=== PATIENT | female | born 1985 | race Caucasian/White ===

== ENCOUNTER 2017-12-21 08:30 | Emergency (ER) | payer MEDICAID, SELFPAY ==
[2017-12-21 08:32] VITALS: BP 117/72; PULSE 77; RESP 17; TEMP 37.2; O2SAT 97; BMI 29.5
--- NOTE | 2017-12-21 08:42 | ED.VISSUMM ---
- ER Visit Summary Date of Service: 12/21/17 Chief Complaint: Vomiting and diarrhea History of Present Illness: The patient is a 32 F who goes to the [facility] and does not remember her physician's name. She reports that she has vomiting and diarrhea that began 3 days ago. She is vomited multiple times. No blood in her emesis. She had 7-8 episodes of diarrhea. No blood in her stools or black tarry stools. She reports she is an aching abdominal pain that is diffuse. Is 9 out of 10 with standing up and she is pain-free currently. She denies any dysuria or frequency. Her last menstrual period was in 2011 and she has had an endometrial ablation. No vaginal bleeding or discharge. Patient reports that her boyfriend has similar symptoms as well. Has not been camping out of the country. No possible bad food exposure. Does not drink well water. No recent antibiotic use. Physical Examination: Vitals: Stable. Afebrile. General: Well-nourished and well-developed. Head: Normocephalic atraumatic. Neck: Supple, no lymphadenopathy. No JVD. Nontender. Cardiovascular: Regular rate and rhythm. No murmurs. Respiratory: No respiratory distress. Clear to auscultation bilaterally. Abdominal: Soft, nontender, nondistended, normal bowel sounds. No guarding, rebound, or peritoneal signs. Back: Nontender. Extremities: Nontender, no edema. Skin: Normal color, no rash. Neurologic: Alert and oriented ?3. Cranial nerves II through XII are intact. Normal strength and sensation. Psych: Normal affect. Emergency Department Course and Treatment: Patient refused an IV. She was given Zofran p.o. She is resting comfortably. Treatment Plan: Patient will be discharged with Zofran. Instructed to follow-up with primary care physician 1-2 days if not improving. Return to the emergency department for any worsening symptoms. Disposition: To home in improved and stable condition. Impression: 1. Vomiting/diarrhea. This note was generated with [employer] dictation software. It may contain incorrect words, spelling, and punctuation that were not noted in review of the chart prior to signing ED Disposition - Plan for ED Patient: Chief Complaint: Nausea/Vomiting/Diarrhea Instructions: ED Vomiting Diarrhea Nonspecific Ad Prescriptions: Ondansetron [Zofran Odt] 4 mg PO Q8H PRN PRN #10 tablet PRN Reason: Nausea Referrals: Doctor,Your [STAFF PHYSICIAN] - 1-2 Days if not improving
--- NOTE | 2017-12-21 08:45 | ED.DCSUM_ITS ---
- ER Visit Summary Date of Service: 12/21/17 Chief Complaint: Vomiting and diarrhea History of Present Illness: The patient is a 32 F who goes to the [facility] and does not remember her physician's name. She reports that she has vomiting and diarrhea that began 3 days ago. She is vomited multiple times. No blood in her emesis. She had 7-8 episodes of diarrhea. No blood in her stools or black tarry stools. She reports she is an aching abdominal pain that is diffuse. Is 9 out of 10 with standing up and she is pain-free currently. She denies any dysuria or frequency. Her last menstrual period was in 2011 and she has had an endometrial ablation. No vaginal bleeding or discharge. Patient reports that her boyfriend has similar symptoms as well. Has not been camping out of the country. No possible bad food exposure. Does not drink well water. No recent antibiotic use. Physical Examination: Vitals: Stable. Afebrile. General: Well-nourished and well-developed. Head: Normocephalic atraumatic. Neck: Supple, no lymphadenopathy. No JVD. Nontender. Cardiovascular: Regular rate and rhythm. No murmurs. Respiratory: No respiratory distress. Clear to auscultation bilaterally. Abdominal: Soft, nontender, nondistended, normal bowel sounds. No guarding, rebound, or peritoneal signs. Back: Nontender. Extremities: Nontender, no edema. Skin: Normal color, no rash. Neurologic: Alert and oriented ?3. Cranial nerves II through XII are intact. Normal strength and sensation. Psych: Normal affect. Emergency Department Course and Treatment: Patient refused an IV. She was given Zofran p.o. She is resting comfortably. Treatment Plan: Patient will be discharged with Zofran. Instructed to follow- up with primary care physician 1-2 days if not improving. Return to the emergency department for any worsening symptoms. Disposition: To home in improved and stable condition. Impression: 1. Vomiting/diarrhea. This note was generated with [employer] dictation software. It may contain incorrect words, spelling, and punctuation that were not noted in review of the chart prior to signing ED Disposition - Plan for ED Patient: Chief Complaint: Nausea/Vomiting/Diarrhea Instructions: ED Vomiting Diarrhea Nonspecific Ad Prescriptions: Ondansetron [Zofran Odt] 4 mg PO Q8H PRN PRN #10 tablet PRN Reason: Nausea Referrals: Doctor,Your [STAFF PHYSICIAN] - 1-2 Days if not improving
[2017-12-21] MEDS: Ondansetron ODT 4 MG Tablet PO (09:03)
== END 2017-12-21 09:12 | disposition home or self-care (01) ==
LOC: ED 08:46
PROVIDERS: Emergency Provider Emergency Medicine; Family Provider Family Medicine; PCP Family Medicine
DX: R19.7 Diarrhea, unspecified (principal); R11.2 Nausea with vomiting, unspecified; R10.9 Unspecified abdominal pain; R53.1 Weakness; E03.9 Hypothyroidism, unspecified; F17.210 Nicotine dependence, cigarettes, uncomplicated
CPT/HCPCS: 99283

== ENCOUNTER 2018-10-18 16:11 | Observation (INO) | payer MEDICAID, SELFPAY ==
[2018-10-18] VITALS (9 sets, daily range): BP systolic 122–132; BP diastolic 66–86; PULSE 65–87; RESP 11–18; TEMP 37–37.1; O2SAT 96–100; BMI 37.5; BMI 35.2
--- NOTE | 2018-10-18 16:27 | CT_ITS ---
STUDY: CT BRAIN WITHOUT CONTRAST REASON FOR EXAM: Female, 32 years old. Weakness into legs RADIATION DOSAGE (If Supplied By Facility): CTDIvol = ( 44.99 ) mGy, DLP = ( 762.36 ) mGycm TECHNIQUE: Transaxial CT imaging of the brain was performed without administration of intravenous contrast material. Individualized dose optimization techniques were used for this CT. COMPARISON: No relevant priors. FINDINGS: Normal soft tissue structures. Normal calvarium. Normal size ventricles and extra-axial spaces for the patient's age. Normal white matter tracts of the cerebral hemispheres. Normal basal ganglia and thalami. Normal brainstem. Normal cerebellum. There is no intracranial hemorrhage. There are no findings of an acute ischemic infarction. Normal visualized paranasal sinuses. CT/Brain/Head without Contrast IMPRESSION: Normal unenhanced CT scan of the brain. Electronically Signed: Ajit Castanon, at 17:22 EDT Tel , Service support ,
--- NOTE | 2018-10-18 16:27 | EKG12_ITS ---
Test Reason : NUMBNESS Blood Pressure : / mmHG Vent. Rate : 075 BPM Atrial Rate : 075 BPM P-R Int : 160 ms QRS Dur : 088 ms QT Int : 390 ms P-R-T Axes : 016 003 005 degrees QTc Int : 435 ms Normal sinus rhythm Septal infarct , age undetermined , cannot be excluded Abnormal ECG Confirmed by BOYD MCQUEEN, DONOVAN ([id number]), publication editor MUSTAPHA BECERRA ([id number]) on 10/20/2018 12:10:53 PM Referred By: CYNTHIA Confirmed By:DONOVAN NIX MD
[2018-10-18 16:36] LABS: Bedside Glucose 110 mg/dL (70-110)
--- NOTE | 2018-10-18 16:37 | ED.DCSUM_ITS ---
History of Present Illness Chief Complaint: Numb/Ting Narrative: Patient presenting for evaluation secondary to right-sided symptoms and some word finding difficulty. Patient reports over the course of the week she has been having some abnormal feelings of tingling in her feet bilaterally and some generalized weakness. Patient states that today however at about 240 she had a onset of an abnormal feeling where she was feeling alternatingly hot and cold on her right side, and then was developing word finding difficulty. Patient denies that she was having any diplopia, but did feel as if she had some blurred vision in the right eye. She denies any objective weakness associated with this. She denies that there is any sort of numbness associated with this. She is never had any prior similar episodes in the past. Patient is on thyroid supplementation which was recently changed within the last 3 weeks. She is a non-smoker. She denies any underlying history of diabetes hypertension hyperlipidemia. Patient does state that she has had a significant amount of increased stress over the course of the last year or so with weight gain as she is a single mother of 4 children. She denies any underlying history of psychiatric disease. Review of systems otherwise negative. Past Medical History - Allergies and Home Meds Allergies/Adverse Reactions: Allergies thyroid, pork Allergy (Verified 10/18/18 16:14) Unknown Smoking Status: Current every day smoker - Family History Maternal Family History: Reports: No pertinent history Paternal Family History: Reports: Cancer - leukemia Review of Systems All systems negative except as indicated General: Reports: Chills, Sweats Eyes: Reports: Blurred vision - right Neurological: Reports: - - Word finding difficulty Physical Exam Vital Signs/Narrative: Vital Signs Temp Pulse Resp BP Pulse Ox 10/18/18 16:14 98.7 F 80 11 L 124/86 H 96 General: Well nourished, Well developed, No Acute Distress Head: Normocephalic, Atraumatic Eyes: Perrl, EOMI ENT: Moist mucous membranes, No rhinorrhea Neck: Supple, Nontender Cardiovascular: Regular rate, Regular rhythm, Murmur - 4 out of 6 systolic murmur is noted Respiratory: No distress, CTA bilaterally, Chest nontender Abdomen: Soft, Nontender, Nondistended, Normal bowel sounds Back: Nontender, Normal Inspection Extremities: Nontender, No edema Skin: Normal color, No rash Neurological: Alert, Oriented x3, Cranial nerves II-XII grossly intact, Normal Strength, Normal Sensation, - - NIH stroke scale is 0, normal cerebellar testing Psychological: Normal affect, Normal Mood Diagnostic/Tx/Re-eval - Medical Decision Making Patient presented secondary to right-sided symptoms and some word finding difficulty. Stroke work-up was obtained especially given the fact that the patient has a finding of a new onset heart murmur. Work-up was found to be negative including CT brain lab work EKG. Patient had resolution of her symptoms, and did not have any reemergence of the symptoms. Given the patient's cardiac murmur and unilateral symptoms I do believe she requires admission. Patient was discussed with the hospitalist. ED Disposition - Plan for ED Patient: Disposition: Acute Care Hospital [facility] Diagnosis: Cardiac murmur, Paresthesia
[2018-10-18 16:43] LABS: Absolute Lymphocyte Count 1.63 X10^3/ul (0.83-4.51); Absolute Neutrophil Count 4.4 X10^3/uL (2.0-7.7); Basophil# 0.01 X10^3/uL; Basophil% 0.2 % (0-1); Eosinophil# 0.11 X10^3/uL; Eosinophils% 1.7 % (0-5); Hematocrit 38.9 % (37-47); Hemoglobin 13.2 g/dl (12.0-15.0); Lymphocyte # 1.63 X10^3/ul (4.0); Lymphocyte % 24.6 % (19-41); Mean Corp Hgb Conc 33.9 g/gl (32-36); Mean Corpuscular Hgb 30.8 pg (27.0-32.0); Mean Corpuscular Volume 90.7 fL (81-99); Mean Platelet Vol. 9.1 fl (6.2-12.0); Monocyte# 0.42 X10^3/uL; Monocyte% 6.3 % (0-10); Neutrophil # 4.43 X10^3/uL (2.7-7.7); Neutrophil % 66.9 % (47-70); Platelet Count 222 K/mm3 (150-450); RBC Distribution Width CV 12.7 % (11.6-14.6); RBC Distribution Width SD 41.5 fl (35.1-43.9); Red Blood Count 4.29 M/mm3 (4.2-5.4); White Blood Count 6.6 K/mm3 (4.4-11.0)
[2018-10-18 16:44] LABS: POSITIVE COUNT NO; POSITIVE DIFFERENTIAL NO; POSITIVE MORPHOLOGY NO
[2018-10-18 16:52] LABS: Prothrombin Time (Protime)PT. 12.6 SECONDS (11.7-14.9)
--- NOTE | 2018-10-18 16:52 | RAD_ITS ---
STUDY: X-RAY CHEST REASON FOR EXAM: Female, 32 years old. Numbness in legs TECHNIQUE: AP chest COMPARISON: 11/28/2016 FINDINGS: The lungs are clear and expanded. There is no demonstrated pleural abnormality. Normal size heart. Normal mediastinum and aniya. Normal visualized pulmonary arteries. Normal visualized aortic arch and descending thoracic aorta. Normal visualized thoracic spine. Normal visualized ribs, clavicles, and shoulders. There is no demonstrated abnormality of the visualized soft tissue structures of the upper abdomen. RAD/Chest 1 View IMPRESSION: Normal x-ray examination of the chest. Electronically Signed: Ajit Castanon, at 17:24 EDT Tel , Service support ,
[2018-10-18 16:58] LABS: Anion Gap 8 (5-15); BUN 10 mg/dL (7-18); BUN/Creat Ratio 14.5 RATIO (10-20); Calcium,Total 8.7 mg/dL (8.5-10.1); Chloride 104 mmol/L (98-107); Creatinine, Serum 0.69 mg/dL (0.55-1.02); EST Glomerular Filtration Rate 105 mL/min (>60); Est Glom Filt Rate - Afr Amer 127 mL/min (>60); Estimated Creatinine Clearance 102.01 ml/min; Glucose 99 mg/dL (74-106); Potassium 3.3 mmol/L (3.5-5.1); Sodium Level 138 mmol/L (136-145)
--- NOTE | 2018-10-18 18:56 | PCM.HP.STD ---
Problem List (1) CVA (cerebral vascular accident) Status: Acute (2) Hypokalemia Status: Acute (3) Hypothyroidism Status: Chronic (4) Former smoker Status: Acute (5) Hypoglycemia Status: Chronic (6) Obesity Status: Chronic History of Present Illness Date of Admission: 10/18/18 Chief Complaint: right sided numbness and weakness The patient is a 32 year old F with pmhx of hypothyroidism, episodic hypoglycemia, obesity, prior smoker, who presents to the ER with c/o sudden onset of right sided numbness and weakness. This began today about 1440 while she was at work. She was standing when the symptoms began with no clear inciting factor. She said it started as a cold burn followed by numbness that spread from her RUE to her RLE. She later developed change in speech. She says she was talking to her boyfriend on the phone and nothing she said made sense and he could not understand her. She could tell she was not speaking correctly, saying that she knew what she wanted to say but it would not come out right. She is also having difficulty swallowing now. She has no HERNANDEZ. She has no vision or hearing changes. No falls. This went away spontaneously however later she drove to pick and shovel man her kids and it returned. Also of note she had her Synthroid dose reduced recently from 175 daily to 150 daily. She was found to have a murmur today as well that she was not aware of. She has been under significant stress lately. [] Past Medical History Past Medical History (Chronic Problems): Chronic Problems Hypothyroidism (Chronic) Hypoglycemia (Chronic) Obesity (Chronic) Allergies thyroid, pork Allergy (Verified 10/18/18 16:14) Unknown Home Medications: Ambulatory Orders Medication Instructions Recorded Levothyroxine [Synthroid] 150 mcg PO DAILY 09/08/16 Surgical History: no surgical history Psychiatric History: No pertinent psych hx EXTRUSION MANAGER History: No pertinent EXTRUSION MANAGER history Lives: With Family Smoking Status: Former smoker Tobacco Use: Cigarettes Alcohol: None Drugs: None - *Family History Maternal History Items: No pertinent history Paternal History Items: Cancer - leukemia Review of Systems Constitutional: Reports: Fatigue. Denies: Chills, Fever, Weight Change HEENT: Denies: Head Aches, Sinus Congestion, Sinus Drainage Cardiovascular: Denies: Chest Pain, Palpitations Respiratory: Denies: Cough, Shortness of breath at rest, Sputum production Gastrointestinal: Denies: Abdominal Pain, Nausea, Vomiting Genitourinary: Denies: Dysuria Musculoskeletal: Denies: Joint Pain, Joint Tenderness Skin: Denies: Rash, Wounds Neurological: Reports: Change in Speech, Difficulty swallowing, Focal weakness, Numbness, Tingling. Denies: Balance problems, Blurred vision, Double vision, Slurred speech, Confusion, Headaches, Incoordination, Tremor, Seizures Psychiatric: Reports: Anxiety. Denies: Depression, Homicidal Ideations, Suicidal Ideations Hematologic/ Lymphatic: Denies: Easy Bruising, Easy Bleeding VTE Information - Inpt Only VTE Present on Admission: No VTE Mechan Device Prophylaxis: SCD's VTE Pharm Prophylaxis ordered?: No Patient Problems: Active and Suspected Problems CVA (cerebral vascular accident) (Acute) Hypokalemia (Acute) Former smoker (Acute) - Physical Exam General: Alert, Oriented x3, Cooperative HEENT: Atraumatic, PERRLA, EOMI, Normocephalic Neck: Supple, No JVD, Negative Carotid Bruits Lungs: Clear to auscultation, Normal air movement Cardiovascular: Regular rate, Murmur - 3/6 systolic Abdomen: Bowel Sounds Present, Soft, Non Tender Extremities: No edema, Capillary Refill Less than 3 Seconds Skin: No rashes, No breakdown Musculoskeletal: No Tenderness to Palpation of Joints or Extremities Neurological: Cranial nerves II-XII grossly intact Psych/Mental Status: Appropriate, Anxious, Alert and oriented to time, place, person, mood and affect Vital Signs Temp Pulse Resp BP Pulse Ox 98.7 F 83 18 128/82 H 99 10/18/18 16:14 10/18/18 18:27 10/18/18 18:27 10/18/18 18:27 10/18/18 18:27 Oxygen Delivery Method Room Air Weight: 218 lb 7.649 oz Body Mass Index (BMI) 37.5 Finger Stick Blood Glucose 110 Laboratory Tests Past 24 Hrs 10/18/18 10/18/18 10/18/18 16:31 16:31 16:31 WBC 6.6 RBC 4.29 Hgb 13.2 Hct 38.9 MCV 90.7 MCH 30.8 MCHC 33.9 RDW 12.7 RDW Differential 41.5 Plt Count 222 MPV 9.1 Immature Gran % (Auto) 0.300 Neut % (Auto) 66.9 Lymph % (Auto) 24.6 [place] % (Auto) 6.3 Eos % (Auto) 1.7 Baso % (Auto) 0.2 Absolute Neuts (auto) 4.4 Absolute Lymphs (auto) 1.63 Total Counted Not Reportable PT 12.6 INR 1.0 APTT 26.0 Sodium 138 Potassium 3.3 L Chloride 104 Carbon Dioxide 26.0 Anion Gap 8 BUN 10 Creatinine 0.69 Estim Creat Clear Calc 102.01 Est GFR (MDRD) Af Amer 127 Est GFR (MDRD) Non-Af 105 BUN/Creatinine Ratio 14.5 Glucose 99 Calcium 8.7 Troponin I < 0.015 POC Glucose 10/18/18 16:28 POC Glucose 110 Assessment/Plan All Active Problems CVA (cerebral vascular accident) (Acute) Hypokalemia (Acute) Former smoker (Acute) 1. Right sided weakness, aphasia, numbness/tingling, sudden onset, rule out CVA - ct brain negative. labs with low K. Check MRI brain, MRA head and neck, Echo, PTOTST, Neuro c/s, check TSH/T4 , mag, B12 2. New murmur - echo as above 3. Hypothyroidism - check TSH/FT4 as above, recently dose changed. 4.Obesity - dietary eval. DVT ppx: lovenox This patient was seen by Akbar Chung PA-C under the supervision of Dr. Cheek.
--- NOTE | 2018-10-18 19:27 | ECHOD_ITS ---
Reason For Study: TIA/CVA Procedure This was a 2D Doppler, Color Flow transthoracic echocardiogram. Exam performed portable in patient room. Left Ventricle Normal LV size. Left ventricular systolic function is normal. The estimated ejection fraction is 55 %. No evidence for diastolic dysfunction. No regional wall motion abnormalities noted. Right Ventricle Normal RV size. Normal systolic function. Atria Normal left atrium. Normal right atrium. No doppler evidence for ASD. Bubble contrast study negative for right to left interatrial shunt. Mitral Valve There is no mitral annular calcification. Normal mitral valve. Trivial mitral valve insufficiency. Tricuspid Valve Normal tricuspid valve. Mild tricuspid valve insufficiency. Right ventricular systolic pressure estimated to be 22 mmHg. Aortic Valve Trisinus/trileaflet aortic valve. Mild focal aortic valve calcification. Mild (1+) aortic valve insufficiency. Pulmonic Valve The pulmonic valve is not well visualized. Trivial pulmonic valve insufficiency. Great Vessels Normal sized aortic root. Pericardium/Pleural No pericardial effusion. Medication Performed a rapid injection of agitated mix of 9 cc saline and 1cc air to assess for atrial septal defect. MMode/2D Measurements & Calculations LVIDd: 5.1 cm IVSd: 0.83 cm Ao root diam: 3.0 cm LVIDs: 3.3 cm LVPWd: 0.82 cm RVDd: 3.4 cm FS: 35.1 % LAV(MOD-bp): 47.0 ml LVAd ap4: 35.6 cm2 SV(MOD-sp4): 64.6 ml LAV(MOD-bp) Indexed: 23.8 ml/m2 EDV(MOD-sp4): 118.5 ml LAV(MOD-sp2): 50.9 ml EDV(sp4-el): 121.8 ml LAV(MOD-sp4): 43.8 ml LVAs ap4: 21.6 cm2 ESV(MOD-sp4): 53.9 ml ESV(sp4-el): 54.6 ml EF(MOD-sp4): 54.5 % EF(sp4-el): 55.2 % SV(sp4-el): 67.2 ml LA A4 area: 16.4 cm2 LA dimension(2D): 3.7 cm RA A4 area: 13.3 cm2 Time Measurements MV dec time: 0.26 sec Doppler Measurements & Calculations MV E max geoffrey: 90.3 cm/sec Lat Peak E' Geoffrey: 17.1 cm/sec Med Peak E' Geoffrey: 11.5 cm/sec MV A max geoffrey: 55.1 cm/sec E/E' lat: 5.3 E/E' med: 7.9 MV E/A: 1.6 Ao V2 max: 237.4 cm/sec AI max geoffrey: 444.9 cm/sec LV V1 max: 104.9 cm/sec Ao max P.6 mmHg AI max P.3 mmHg LV V1 max P.4 mmHg Ao V2 mean: 163.0 cm/sec AI dec slope: 208.8 cm/sec2 LV V1 mean P.3 mmHg Ao mean P.0 mmHg AI P1/2t: 624.1 msec LV V1 mean: 71.1 cm/sec Ao V2 VTI: 45.8 cm LV V1 VTI: 23.9 cm TR max geoffrey: 218.8 cm/sec TR max P.2 mmHg Interpretation Summary Left ventricular systolic function is normal. The estimated ejection fraction is 55 %. Trivial mitral valve insufficiency. Mild tricuspid valve insufficiency. Mild focal aortic valve calcification. Mild (1+) aortic valve insufficiency. Trivial pulmonic valve insufficiency. Right ventricular systolic pressure estimated to be 22 mmHg. No evidence for diastolic dysfunction. Bubble contrast study negative for right to left interatrial shunt. Ordering Physician: Renae Cheek Referring Physician: LAGO. AGUILAR Performed By: Carol Ross, YOGESH, RVT
[2018-10-18] MEDS: 0.9% Normal Saline 1,000 ML 100 ML IV (20:22)
[2018-10-18 20:25] LABS: Magnesium 1.8 mg/dL (1.6-2.6); T4 Free Direct 1.29 ng/dL (0.76-1.46); Thyroid Stim Hormone (TSH) 0.03 uIU/mL (0.358-3.74)
[2018-10-18] MEDS: Acetaminophen 325 MG Tablet 650 MG PO (20:33)
[2018-10-18 21:10] LABS: Bedside Glucose 89 mg/dL (70-110)
[2018-10-18 21:35] LABS: Vitamin B12 443 pg/mL (211-911)
[2018-10-19] VITALS (8 sets, daily range): BP systolic 101–116; BP diastolic 44–69; PULSE 60–74; RESP 16–17; TEMP 36.6–36.9; O2SAT 96–99; BMI 35.2
[2018-10-19] MEDS: Levothyroxine 150 MCG Tablet PO (05:46)
[2018-10-19] MEDS: 0.9% Normal Saline 1,000 ML 100 ML IV (05:47)
[2018-10-19 06:15] LABS: Cholesterol 149 mg/dL (200); High Density Lipoprotein 37 mg/dL; Triglycerides 81 mg/dL; Very Low Density Lipoprotein 16 mg/dL (5-40)
--- NOTE | 2018-10-19 07:27 | MRI_ITS ---
HISTORY: CVA, episode of RIGHT facial numbness, speech issues and difficulty swallowing EXAMINATION: MRA Head W/O Contrast TECHNIQUE: Routine k[place] of Vee/brain 3D time of flight MR angiogram protocol was performed without gadolinium. 3D reconstructions were reviewed. IV Contrast dosage and agent: None. COMPARISON: None FINDINGS: ICAs: No significant stenosis at the intracranial/visualized segments. ACAs: No significant stenosis at the visualized segments. ACOM is present. MCAs: No significant stenosis at the visualized segments. powder blender and pourer: No significant stenosis at the visualized segments. Prominent, patent, left posterior communicating artery. BASILAR ARTERY: No significant stenosis. VERTEBRAL ARTERIES: No significant stenosis at the intradural/visualized segments. No evidence of intracranial aneurysm or vascular malformation. MRI/MRA Head ONLY without Contrast IMPRESSION: Unremarkable MRA head. at 0948 Reported and signed by: Modesto Helms MD Electronically Signed: Modesto Helms, at 9:47 EDT Tel , Service support ,
--- NOTE | 2018-10-19 07:27 | MRI_ITS ---
HISTORY: CVA, episode of RIGHT facial numbness, speech issues and difficulty swallowing EXAMINATION: MR Brain W/O Contrast TECHNIQUE: Multiplanar and multisequence MR images of the brain were obtained without gadolinium. IV Contrast dosage and agent: None. COMPARISON: CT brain 10/18/18. FINDINGS: PARANASAL SINUSES AND MASTOID AIR CELLS: Clear. CALVARIUM: Unremarkable. INTRACRANIAL HEMORRHAGE: No evidence of intracranial hemorrhage. BRAIN PARENCHYMA: No acute infarct. Cerebrum, cerebellum and brainstem are unremarkable. Normal sella turcica, pituitary gland, infundibular stalk, optic chiasm and hypothalamus. The internal auditory canals are patent. No mass effect or midline shift. CSF SPACES: Appropriate for age. There is no hydrocephalus. Patent basal cisterns. VASCULAR SYSTEM: Normal flow voids in the major intracranial circulation. ORBITS: Both globes, extraocular muscles, optic nerves and retrobulbar fat appear unremarkable. MRI/Brain without Contrast IMPRESSION: Negative MRI Brain without contrast. at 1014 Reported and signed by: Modesto Helms MD Electronically Signed: Modesto Helms, at 10:13 EDT Tel , Service support ,
--- NOTE | 2018-10-19 07:28 | MRI_ITS ---
HISTORY: CVA, episode of RIGHT facial numbness, speech issues and difficulty swallowing EXAMINATION: MRA Neck W/O Contrast TECHNIQUE: Routine non-contrast [id number] Carotid MR angiogram protocol was performed without gadolinium. 3D reconstructions were reviewed. Nascet criteria using the distal ICAs for comparison were used for evaluation of stenoses. IV Contrast dosage and agent: None. COMPARISON: None FINDINGS: AORTIC ARCH AND BRANCHES: The aortic arch is not fully included on the study. There is aberrant right subclavian artery coursing posterior to the trachea and esophagus, not fully visible. The right, Benson arises directly from the aortic arch. RIGHT CCA: No occlusion, significant stenosis or dissection. RIGHT ICA: No occlusion, significant stenosis or dissection. LEFT CCA: No occlusion, significant stenosis or dissection. LEFT ICA: No occlusion, significant stenosis or dissection. RIGHT VERTEBRAL ARTERY: No occlusion, significant stenosis or dissection. Slightly hypoplastic. LEFT VERTEBRAL ARTERY: No occlusion, significant stenosis or dissection. Left dominant. No evidence of acute injury of the major arterial system of the neck. No evidence of occlusion at the visualized portions of the major arterial system of the head. MRI/MRA Neck without Contrast IMPRESSION: No acute findings. No significant arterial narrowing in the neck. 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 at 1017 Reported and signed by: Modesto Helms MD Electronically Signed: Modesto Helms, at 10:16 EDT Tel , Service support ,
[2018-10-19] MEDS: Aspirin 81 MG TAB.CHEW PO (08:24)
[2018-10-19 09:41] LABS: Amphetamine Urine VISTA NEGATIVE (<1000 ng/mL); Barbiturate Urine VISTA NEGATIVE (< 200 ng/mL); Benzodiazepine Urine VISTA NEGATIVE (< 200 ng/mL); Cocaine Urine VISTA NEGATIVE (< 300 ng/mL); Ecstacy Urine VISTA NEGATIVE (< 500 ng/mL); Methadone Urine VISTA NEGATIVE (< 300 ng/mL); PCP Urine VISTA NEGATIVE (< 25 ng/mL); THC Urine VISTA NEGATIVE (< 50 ng/mL); Vista UDS pH Range 5
--- NOTE | 2018-10-19 12:16 | CON.PCM_ITS ---
Reason for Consult Date of Consultation: 10/19/18 Reason for Consultation: right sided paresthesias History of Present Illness: The patient is a 32 year old F presents after onset at 230pm yesterday symptoms of arm cold, crampy numbness in hand going up arm, right eye blurry, called her boss, noted abnormal speech, called her boyfriend who she says noted speech abnormality and she called the squad, now normal. history of migraines, severe stress and insomnia. per admit note:ATTENDING PHYSICIAN NOTE: I have seen and examined the patient independently and agree with the assessment, plan, history per Akbar Chung as noted. Chief Complaint: R sided paresthesias, expressive aphasia. The patient is a 32 y/o F w/ PMHx: Hypothyroidism, Anxiety and untreated Depression, Obesity who presents to the [facility] ED on 10/18/18 w/ history of onset at approximately 2:40 PM on day of ED presentation right upper extremity paresthesias as well as expressive aphasia with dysphagia sensation which spontaneously went away within minutes. She denied any associated headache, light or sound sensitivity. Patient did state that she recently had reduction of her Synthroid regimen from 175 mcg to 150 mcg. She does admit to being under a lot of stress and very anxious, tearful during examination. Work-up in the ED included T 98.7, heart rate 80, BP 124/86, respiratory rate 17, 97% room air, remarkable CBC, unremarkable coags, BMP potassium 3.3 otherwise not remarkable, troponin less than 0.015, EKG with no acute evidence of ischemia, chest x-ray with no acute findings, CT head with no acute findings. 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 Lives: With Family Smoking Status: Former smoker Tobacco Use: Cigarettes Alcohol: None Drugs: None - *Family History Maternal History Items: No pertinent history Paternal History Items: Cancer - leukemia Review of Systems Constitutional: Denies: Chills, Fever, Weight Change Eyes: Denies: Blurred vision HEENT: Denies: Head Aches, Sinus Congestion, Sinus Drainage Cardiovascular: Denies: Chest Pain, Palpitations Respiratory: Denies: Cough, Shortness of breath at rest, Sputum production Gastrointestinal: Denies: Abdominal Pain, Nausea, Vomiting Genitourinary: Denies: Dysuria Musculoskeletal: Denies: Joint Pain, Joint Tenderness Skin: Denies: Rash, Wounds Neurological: Denies: Numbness, Tingling, Focal weakness Psychiatric: Denies: Anxiety, Depression, Homicidal Ideations, Suicidal Ideations Hematologic/ Lymphatic: Denies: Easy Bruising, Easy Bleeding Patient Problems: Active and Suspected Problems CVA (cerebral vascular accident) (Acute) Hypokalemia (Acute) Former smoker (Acute) Cardiac murmur (Acute) Paresthesia (Acute) - Physical Exam General: Alert, Oriented x3, Cooperative HEENT: Atraumatic, PERRLA, EOMI, Normocephalic Neck: Supple, No JVD, Negative Carotid Bruits Lungs: Clear to auscultation, Normal air movement Cardiovascular: Regular rate, No murmurs Abdomen: Bowel Sounds Present, Soft, Non Tender Extremities: No edema, Capillary Refill Less than 3 Seconds Skin: No rashes, No breakdown Musculoskeletal: No Tenderness to Palpation of Joints or Extremities Neurological: Cranial nerves II-XII grossly intact Psych/Mental Status: Normal Affect, Appropriate Vital Signs Temp Pulse Resp BP Pulse Ox 36.7 C 60 17 116/68 98 10/19/18 08:19 10/19/18 10:56 10/19/18 08:19 10/19/18 08:19 10/19/18 08:19 Oxygen Delivery Method Room Air Weight: 93.1 kg Body Mass Index (BMI) 35.2 Finger Stick Blood Glucose 110 Intake and Output for Last 24 Hours 10/17/18 10/18/18 10/19/18 23:59 23:59 23:59 Intake Total 1591 / 1591 Balance 1591 / 1591 Laboratory Tests Past 24 Hrs 10/18/18 10/18/18 10/18/18 13:41 16:31 16:31 WBC 6.6 RBC 4.29 Hgb 13.2 Hct 38.9 MCV 90.7 MCH 30.8 MCHC 33.9 RDW 12.7 RDW Differential 41.5 Plt Count 222 MPV 9.1 Immature Gran % (Auto) 0.300 Neut % (Auto) 66.9 Lymph % (Auto) 24.6 Schleicher % (Auto) 6.3 Eos % (Auto) 1.7 Baso % (Auto) 0.2 Absolute Neuts (auto) 4.4 Absolute Lymphs (auto) 1.63 Total Counted Not Reportable PT 12.6 INR 1.0 APTT 26.0 Sodium Potassium Chloride Carbon Dioxide Anion Gap BUN Creatinine Estim Creat Clear Calc Est GFR (MDRD) Af Amer Est GFR (MDRD) Non-Af BUN/Creatinine Ratio Glucose Calcium Magnesium Troponin I Triglycerides Cholesterol LDL Cholesterol VLDL Cholesterol HDL Cholesterol Vitamin B12 443 TSH Free T4 Urine Opiates Screen Urine Methadone Screen Ur Barbiturates Screen Ur Phencyclidine Scrn Ur Amphetamines Screen U Methamphetamin-MDMA U Benzodiazepines Scrn Urine Cocaine Screen U Cannabinoids Screen Ur Drug Screen Comment 10/18/18 10/18/18 10/19/18 16:31 16:31 05:18 WBC RBC Hgb Hct MCV MCH MCHC RDW RDW Differential Plt Count MPV Immature Gran % (Auto) Neut % (Auto) Lymph % (Auto) Schleicher % (Auto) Eos % (Auto) Baso % (Auto) Absolute Neuts (auto) Absolute Lymphs (auto) Total Counted PT INR APTT Sodium 138 Potassium 3.3 L Chloride 104 Carbon Dioxide 26.0 Anion Gap 8 BUN 10 Creatinine 0.69 Estim Creat Clear Calc 102.01 Est GFR (MDRD) Af Amer 127 Est GFR (MDRD) Non-Af 105 BUN/Creatinine Ratio 14.5 Glucose 99 Calcium 8.7 Magnesium 1.8 Troponin I < 0.015 Triglycerides 81 Cholesterol 149 LDL Cholesterol 96 VLDL Cholesterol 16 HDL Cholesterol 37 L Vitamin B12 TSH 0.03 L Free T4 1.29 Urine Opiates Screen Urine Methadone Screen Ur Barbiturates Screen Ur Phencyclidine Scrn Ur Amphetamines Screen U Methamphetamin-MDMA U Benzodiazepines Scrn Urine Cocaine Screen U Cannabinoids Screen Ur Drug Screen Comment 10/19/18 08:50 WBC RBC Hgb Hct MCV MCH MCHC RDW RDW Differential Plt Count MPV Immature Gran % (Auto) Neut % (Auto) Lymph % (Auto) Schleicher % (Auto) Eos % (Auto) Baso % (Auto) Absolute Neuts (auto) Absolute Lymphs (auto) Total Counted PT INR APTT Sodium Potassium Chloride Carbon Dioxide Anion Gap BUN Creatinine Estim Creat Clear Calc Est GFR (MDRD) Af Amer Est GFR (MDRD) Non-Af BUN/Creatinine Ratio Glucose Calcium Magnesium Troponin I Triglycerides Cholesterol LDL Cholesterol VLDL Cholesterol HDL Cholesterol Vitamin B12 TSH Free T4 Urine Opiates Screen NEGATIVE Urine Methadone Screen NEGATIVE Ur Barbiturates Screen NEGATIVE Ur Phencyclidine Scrn NEGATIVE Ur Amphetamines Screen NEGATIVE U Methamphetamin-MDMA NEGATIVE U Benzodiazepines Scrn NEGATIVE Urine Cocaine Screen NEGATIVE U Cannabinoids Screen NEGATIVE Ur Drug Screen Comment POC Glucose 10/18/18 10/18/18 20:37 16:28 POC Glucose 89 110 mri and mra reviewed, normal Current Home Med List Medication Instructions Recorded Confirmed Type Levothyroxine [Synthroid] 150 mcg PO DAILY 09/08/16 10/18/18 History Lorazepam [Ativan] 0.5 mg PO BID PRN PRN 10/18/18 10/18/18 History Current Medications Generic Name Dose Route Start Last Admin Trade Name Freq PRN Reason Stop Dose Admin Acetaminophen 650 mg 10/18/18 19:27 10/18/18 20:33 Tylenol PO 650 mg Q6H PRN PRN Administration Non-cardiac pain (mod-severe) Al Hydroxide/Mg Hydroxide 15 - 30 ml 10/18/18 19:27 Mylanta Ii PO Q4H PRN PRN INDIGESTION Albuterol Sulfate 2.5 mg 10/18/18 19:27 Ventolin Aerosols INHALATION Q2H PRN PRN dyspnea, wheezing Aspirin 81 mg 10/19/18 08:00 10/19/18 08:24 Aspirin, Baby PO 81 mg DAILY@0800 [facility] Administration Atorvastatin Calcium 80 mg 10/18/18 22:00 10/19/18 10:42 Lipitor PO Not Given QHS [facility] Dextrose 0 gm 10/18/18 19:27 D50w Syringe IV X1 PRN Hypoglycemia Protocol Enoxaparin Sodium 40 mg 10/19/18 06:00 10/19/18 05:47 Lovenox SC Not Given DAILY@0600 [facility] Glucagon 1 mg 10/18/18 19:27 IM .X1 PRN Hypoglycemia Hydralazine HCl 10 mg 10/18/18 19:27 Apresoline Iv IV Q4H PRN PRN SBP > 160 Levothyroxine Sodium 150 mcg 10/19/18 06:00 10/19/18 05:46 Synthroid PO 150 mcg DAILY@0600 [facility] Administration Lorazepam 0.5 mg 10/18/18 19:32 Ativan PO BID PRN PRN ANXIETY Melatonin 3 mg 10/18/18 19:27 Melatonin PO QHS PRN PRN INSOMNIA Ondansetron HCl 4 mg 10/18/18 19:27 Zofran IV Q8H PRN PRN NAUSEA/VOMITING Assessment/Plan All Active Problems CVA (cerebral vascular accident) (Acute) Hypokalemia (Acute) Former smoker (Acute) Cardiac murmur (Acute) Paresthesia (Acute) complex migraine, resolved, complicated by anxiety, stress and insomnia elavil 25mg qhs ok to dc op f/u
--- NOTE | 2018-10-19 13:50 | CHAPLAIN ---
Type of Pastoral Visit _x__ Initial Visit ___ Follow-up Visit ___ On-call Visit ___ General Patient Visit ___ Spiritual Assessment ___ Family Conference ___ Bereavement ___ Rapid Response ___ Code Blue ___ Other (describe below) Pastoral Care Referral From _x__ Patient ___ Family ___ Nurse ___ Physician ___ Slime Plant Operator ___ Special Assemblies Supervisor ___ Other (describe below) Sacrament/Intervention _x__ Active listening ___ Anointing ___ Episcopal ___ Bereavement ___ Communion ___ Mónica exploration ___ ___ Life review ___ Prayer ___ Reconciliation ___ Sacrament of Sick ___ Supportive presence ___ Wedding _x__ Other (describe below) Pastoral Comments talked with dry cell battery assembler about this patient who said she needs to leave right now; returned to pt to let her know that dry cell battery assembler will be in to see her soon and explain situation about discharge
[2018-10-19 14:56] LABS: Free T3 2.3 pg/mL (2.18-3.98)
--- NOTE | 2018-10-19 14:59 | NURSING ---
Pt requesting to sign herself out. Dr Maki notified and not discharging pt at this time and if pt would like to leave, it will be AMA. AMA paperwork signed with this RN at bedside. pt ambulated to the elevator independently. Anastasia ALVAREZ
--- NOTE | 2018-10-19 15:18 | PCM.DC.SUM ---
Discharge Date and Diagnosis Date of Admission: 10/18/18 Date of Discharge: 10/19/18 - Primary Discharge Diagnosis Complex migraine Hx nicotine abuse Cardiac murmur Anxiety Insomnia - Secondary Discharge Diagnosis Chronic Problems Hypothyroidism (Chronic) Hypoglycemia (Chronic) Obesity (Chronic) Hospital Course and Treatment Imaging Results: CT/Brain/Head without Contrast IMPRESSION: Normal unenhanced CT scan of the brain. RAD/Chest 1 View IMPRESSION: Normal x-ray examination of the chest. Echo: Interpretation Summary Left ventricular systolic function is normal. The estimated ejection fraction is 55 %. Trivial mitral valve insufficiency. Mild tricuspid valve insufficiency. Mild focal aortic valve calcification. Mild (1+) aortic valve insufficiency. Trivial pulmonic valve insufficiency. Right ventricular systolic pressure estimated to be 22 mmHg. No evidence for diastolic dysfunction. Bubble contrast study negative for right to left interatrial shunt. MRI/MRA Neck without Contrast IMPRESSION: No acute findings. No significant arterial narrowing in the neck. 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 MRI/MRA Head ONLY without Contrast IMPRESSION: Unremarkable MRA head. MRI/Brain without Contrast IMPRESSION: Negative MRI Brain without contrast. Consults: Peace - neuro Operations: None Procedures: 2-D Echocardiogram Summary of Care Provided: Hospital Course: The patient is a 32 year old F with past medical history of nicotine abuse, obesity, hypothyroidism, anxiety, insomnia, who presented to the emergency room with complaints of right upper and lower extremity numbness and weakness, slurred speech, aphasia that occurred the day of presentation at approximately 240 in the afternoon. She still expressed some weakness of the right upper extremity in the emergency room. In the ER she had a CT of the brain which was negative. Labs appeared unremarkable. She is admitted for stroke work-up. She underwent an MRI of the brain, MRA of the head and neck with no acute findings. She had a new murmur discovered so an echocardiogram was obtained as well. This showed 1+ aortic valve insufficiency, no other acute findings. Neuro felt that this was likely a complex migraine that had resolved at the time he had seen her and advsied elavil at night. She also reported that her thyroid levels recently were adjusted, so we checked a TSH which was low, however T4 was normal so nothing was changed with her synthroid dose. The patient left AMA before we had a chance to evaluate her, stating that she needed to get home. She was discharged home AGAINST MEDICAL ADVICE, she will need to follow-up with her PCP in 1-2 weeks and follow-up with neurology as directed. No Rx's were given. This patient was seen by Akbar Chung PA-C under the supervision of Doctor Shanthi. [] - Physical Exam Vital Signs Temp Pulse Resp BP Pulse Ox 97.9 F 66 17 112/69 99 10/19/18 13:57 10/19/18 13:57 10/19/18 13:57 10/19/18 13:57 10/19/18 13:57 Oxygen Delivery Method Room Air Weight: 205 lb 4.006 oz Body Mass Index (BMI) 35.2 Finger Stick Blood Glucose 110 Intake and Output for Last 24 Hours 10/17/18 10/18/18 10/19/18 23:59 23:59 23:59 Intake Total 2441 / 2441 Balance 2441 / 2441 Laboratory Tests Past 24 Hrs 10/18/18 10/18/18 10/18/18 13:41 16:31 16:31 WBC 6.6 RBC 4.29 Hgb 13.2 Hct 38.9 MCV 90.7 MCH 30.8 MCHC 33.9 RDW 12.7 RDW Differential 41.5 Plt Count 222 MPV 9.1 Immature Gran % (Auto) 0.300 Neut % (Auto) 66.9 Lymph % (Auto) 24.6 [place] % (Auto) 6.3 Eos % (Auto) 1.7 Baso % (Auto) 0.2 Absolute Neuts (auto) 4.4 Absolute Lymphs (auto) 1.63 Total Counted Not Reportable PT 12.6 INR 1.0 APTT 26.0 Sodium Potassium Chloride Carbon Dioxide Anion Gap BUN Creatinine Estim Creat Clear Calc Est GFR (MDRD) Af Amer Est GFR (MDRD) Non-Af BUN/Creatinine Ratio Glucose Calcium Magnesium Troponin I Triglycerides Cholesterol LDL Cholesterol VLDL Cholesterol HDL Cholesterol Vitamin B12 443 TSH Free T4 Free T3 pg/dL Urine Opiates Screen Urine Methadone Screen Ur Barbiturates Screen Ur Phencyclidine Scrn Ur Amphetamines Screen U Methamphetamin-MDMA U Benzodiazepines Scrn Urine Cocaine Screen U Cannabinoids Screen Ur Drug Screen Comment 10/18/18 10/18/18 10/19/18 16:31 16:31 05:18 WBC RBC Hgb Hct MCV MCH MCHC RDW RDW Differential Plt Count MPV Immature Gran % (Auto) Neut % (Auto) Lymph % (Auto) [place] % (Auto) Eos % (Auto) Baso % (Auto) Absolute Neuts (auto) Absolute Lymphs (auto) Total Counted PT INR APTT Sodium 138 Potassium 3.3 L Chloride 104 Carbon Dioxide 26.0 Anion Gap 8 BUN 10 Creatinine 0.69 Estim Creat Clear Calc 102.01 Est GFR (MDRD) Af Amer 127 Est GFR (MDRD) Non-Af 105 BUN/Creatinine Ratio 14.5 Glucose 99 Calcium 8.7 Magnesium 1.8 Troponin I < 0.015 Triglycerides 81 Cholesterol 149 LDL Cholesterol 96 VLDL Cholesterol 16 HDL Cholesterol 37 L Vitamin B12 TSH 0.03 L Free T4 1.29 Free T3 pg/dL Urine Opiates Screen Urine Methadone Screen Ur Barbiturates Screen Ur Phencyclidine Scrn Ur Amphetamines Screen U Methamphetamin-MDMA U Benzodiazepines Scrn Urine Cocaine Screen U Cannabinoids Screen Ur Drug Screen Comment 10/19/18 10/19/18 05:18 08:50 WBC RBC Hgb Hct MCV MCH MCHC RDW RDW Differential Plt Count MPV Immature Gran % (Auto) Neut % (Auto) Lymph % (Auto) [place] % (Auto) Eos % (Auto) Baso % (Auto) Absolute Neuts (auto) Absolute Lymphs (auto) Total Counted PT INR APTT Sodium Potassium Chloride Carbon Dioxide Anion Gap BUN Creatinine Estim Creat Clear Calc Est GFR (MDRD) Af Amer Est GFR (MDRD) Non-Af BUN/Creatinine Ratio Glucose Calcium Magnesium Troponin I Triglycerides Cholesterol LDL Cholesterol VLDL Cholesterol HDL Cholesterol Vitamin B12 TSH Free T4 Free T3 pg/dL 2.3 Urine Opiates Screen NEGATIVE Urine Methadone Screen NEGATIVE Ur Barbiturates Screen NEGATIVE Ur Phencyclidine Scrn NEGATIVE Ur Amphetamines Screen NEGATIVE U Methamphetamin-MDMA NEGATIVE U Benzodiazepines Scrn NEGATIVE Urine Cocaine Screen NEGATIVE U Cannabinoids Screen NEGATIVE Ur Drug Screen Comment POC Glucose 10/18/18 10/18/18 20:37 16:28 POC Glucose 89 110 Discharge Diet: No Restrictions Discharge Activity: Return to Normal Activity Home Medications: Medications to take at Discharge Levothyroxine [Synthroid] 150 mcg PO DAILY 09/08/16 Lorazepam [Ativan] 0.5 mg PO BID PRN PRN 10/18/18 Primary Care Physician: Azael Luz MD [Primary Care Provider] - Please follow up with your Primary Care Physician in: 1-2 weeks Please Follow Up With: Tyree Peace MD When: as directed Medical Necessity - Tobacco Use Smoking Status: Former smoker Tobacco Use: Cigarettes Meaningful Use Info Meaningful Use Diagnoses (Choose all that apply): None applicable
== END 2018-10-19 14:58 | disposition left against medical advice (07) ==
LOC: ED 17:04 → PCU 18:47
PROVIDERS: Internal Medicine; Admitting Provider Family Medicine; Emergency Provider Emergency Medicine; Family Provider Family Medicine; PCP Family Medicine; Visit Provider Family Medicine
DX: G43.109 Migraine with aura, not intractable, without status migrainosus (principal); R29.700 NIHSS score 0; E03.9 Hypothyroidism, unspecified; F41.9 Anxiety disorder, unspecified; F32.9 Major depressive disorder, single episode, unspecified; E66.9 Obesity, unspecified; Z71.3 Dietary counseling and surveillance; Z79.899 Other long term (current) drug therapy; E87.6 Hypokalemia; Z87.891 Personal history of nicotine dependence; R01.1 Cardiac murmur, unspecified; Z68.37 Body mass index [BMI] 37.0-37.9, adult; I08.3 Combined rheumatic disorders of mitral, aortic and tricuspid valves
CPT/HCPCS: 36415; 70450; 70544; 70547; 70551; 71045; 80048; 80061; 80307; 82607; 82962; 83735; 84439; 84443; 84481; 84484; 85025; 85610; 85730; 92523; 92610; 93005; 93306; 96360; 96361; 97802; 99218; 99285; J7030; Q9957; A4216; G0378

== ENCOUNTER → 2021-12-26 | Outpatient (CLI) | payer MEDICAID, SELFPAY ==
--- NOTE | 2021-12-26 17:42 | CT_ITS ---
STUDY: CT ABDOMEN AND PELVIS WITH CONTRAST REASON FOR EXAM: Female, 36 years old. Upper and lower abd pain, chronic diarrhea -- IV and oral RADIATION DOSAGE (If Supplied By Facility): CTDIvol = ( 18.44 ) mGy, DLP = ( 1197.32 ) mGycm TECHNIQUE: Transaxial images were obtained from the dome of the diaphragm to the symphysis pubis without oral contrast. Oral and amp; IV Read i-CAT and amp; 100mL Isovue-370 was administered. Sagittal and coronal images were reconstructed. Individualized dose optimization techniques were used for this CT. COMPARISON: None. FINDINGS: The visualized lung bases are unremarkable. The visualized portions of the heart are within normal limits. Normal liver. The gallbladder is contracted. Normal spleen. Normal pancreas. Normal bilateral adrenal glands. There is a small cyst right kidney too small to characterize measuring 4.5 mm. Normal left kidney. The stomach is partially filled with oral contrast. Normal small intestine. There is mild to moderate stool within the colon. There is no visualized significant wall edema or adjacent inflammatory change. The appendix is visualized and appears normal. Normal abdominal aorta. Normal inferior vena cava. Normal retroperitoneum. Normal urinary bladder . Normal visualized uterus. There are bilateral tubal ligation clips. There is a 1.6 cm right ovarian follicle. There is no significant free fluid Normal abdominal wall. In the mid thoracic spine there are multilevel Schmorl''s nodes with minor endplate changes. There is degenerative change of the SI joints. CT/Abdomen/Pelvis WITH Contrast IMPRESSION: Nonspecific nonobstructed bowel gas pattern. No appendicitis. No visualized hydronephrosis. Contracted gallbladder. Minor degenerative changes within the thoracolumbar spine . Small right ovarian follicle. Status post tubal ligation. Electronically Signed: Shayy Borges MD at 6:30 EDT ,
== END | disposition home or self-care (01) ==
LOC: CT 17:40
PROVIDERS: PCP Physician Assistant; Visit Provider Nurse Practitioner Adult Health
DX: R19.7 Diarrhea, unspecified (principal); R10.9 Unspecified abdominal pain; R14.0 Abdominal distension (gaseous); K90.0 Celiac disease
CPT/HCPCS: 74177; Q9967

== ENCOUNTER → 2022-01-29 | Outpatient (CLI) | payer MEDICAID, SELFPAY ==
[2022-01-29 18:30] LABS: Thyroid Stim Hormone (TSH) 0.11 uIU/mL (0.358-3.74)
[2022-02-07 11:52] LABS: H. PYLORI STOOL AG Negative (Negative)
[2022-02-07 15:39] LABS: Pancreatic Elastase, Fecal 123 (>200)
[2022-02-12 10:33] LABS: Calprotectin, Stool 149 ug/g (0-120)
== END | disposition home or self-care (01) ==
LOC: LAB 17:43
PROVIDERS: Nurse Practitioner Adult Health; PCP Physician Assistant; Visit Provider Internal Medicine Gastroenterology
DX: K58.0 Irritable bowel syndrome with diarrhea (principal); R14.0 Abdominal distension (gaseous); R10.9 Unspecified abdominal pain; R19.7 Diarrhea, unspecified
CPT/HCPCS: 36415; 82653; 83630; 83993; 84443; 87177; 87209; 87338; 87493; 87506

== ENCOUNTER → 2022-02-19 | Outpatient (CLI) | payer MEDICAID, SELFPAY | END | disposition home or self-care (01) | PROVIDERS: Internal Medicine Gastroenterology; PCP Physician Assistant; Visit Provider Nurse Practitioner Adult Health | DX: R19.7 Diarrhea, unspecified (principal) | CPT/HCPCS: 36415 ==

== ENCOUNTER → 2022-08-27 | Outpatient (CLI) | payer MEDICAID, SELFPAY ==
[2022-08-27 09:44] LABS: Erythrocyte Sedimentation Rate 10 mm/hr (0-30)
[2022-08-27 09:58] LABS: AST(SGOT) 15 U/L (15-37); Alanine Aminotransfer ALT/SGPT 26 U/L (13-56); Albumin, Serum 3.6 g/dL (3.2-5.0); Alkaline Phosphatase 59 U/L (45-117); Anion Gap 2 (5-15); BUN 11 mg/dL (7-18); BUN/Creat Ratio 14.6 RATIO (10-20); CRP < 2.90 mg/L (0.0-3.0); Calcium,Total 9.2 mg/dL (8.5-10.1); Chloride 106 mmol/L (98-107); Creatinine, Serum 0.75 mg/dL (0.55-1.02); EST Glomerular Filtration Rate 93 mL/min (>60); Est Glom Filt Rate - Afr Amer 112 mL/min (>60); Globulin 3.5 g/dL (2.2-4.2); Glucose 81 mg/dL (74-106); LDH 194 U/L (84-246); Potassium 4.2 mmol/L (3.5-5.1); Protein, Total 7.1 g/dL (6.4-8.2); Sodium Level 135 mmol/L (136-145)
[2022-08-27 10:31] LABS: Absolute Lymphocyte Count 1.18 X10^3/uL (0.83-4.51); Absolute Neutrophil Count 3.3 X10^3/uL (2.0-7.7); Basophil# 0.03 X10^3/uL; Basophil% 0.6 % (0-1); Eosinophil# 0.11 X10^3/uL; Eosinophils% 2.1 % (0-5); Hematocrit 41.1 % (37-47); Hemoglobin 13.9 g/dL (12.0-15.0); Lymphocyte # 1.18 X10^3/ul (0.83-4.51); Lymphocyte % 22.7 % (19-41); Mean Corp Hgb Conc 33.8 g/dL (32-36); Mean Corpuscular Hgb 30.8 pg (27.0-32.0); Mean Corpuscular Volume 91.1 fL (81-99); Mean Platelet Vol. 8.9 fl (6.2-12.0); Monocyte# 0.56 X10^3/uL; Monocyte% 10.8 % (0-10); NRBC Flagged by Analyzer 0 % (0-5); Neutrophil # 3.29 X10^3/uL (2.7-7.7); Neutrophil % 63.4 % (47-70); Platelet Count 287 K/mm3 (150-450); RBC Distribution Width SD 43.7 fl (35.1-43.9); Red Blood Count 4.51 M/mm3 (4.2-5.4); White Blood Count 5.2 K/mm3 (4.4-11.0)
[2022-08-28 14:09] LABS: Anti-Centromere B Ab <0.2 AI (0.0-0.9); Anti-Chromatin <0.2 AI (0.0-0.9); Anti-Jo <0.2 AI (0.0-0.9); Anti-Scleroderma-70 AB <0.2 AI (0.0-0.9); Anti-dsDNA Ab <1 IU/mL (0-9); RNP Ab 0.2 AI (0.0-0.9); SJOGREN'S Anti-SS-A test < 0.2 AI (0.0-0.9); SJOGREN'S Anti-SS-B test < 0.2 AI (0.0-0.9); Smith Ab <0.2 AI (0.0-0.9)
[2022-08-28 17:07] LABS: Endomysial Antibody IgA Negative (Negative); Immunoglobulin A 121 mg/dL (87-352); t-Transglutaminase IgA 3 U/mL (0-3)
[2022-08-31 18:07] LABS: Albumin 3.8 g/dL (2.9-4.4); Alpha-1-Globulins 0.2 g/dL (0.0-0.4); Alpha-2-Globulins 0.7 g/dL (0.4-1.0); Cytoplasmic Ab (C-ANCA) <1:20 titer (Neg:<1:20); Gamma Globulin 1.1 g/dL (0.4-1.8); Immunoglobulin A 132 mg/dL (87-352); Immunoglobulin E 13 IU/mL (6-495); Immunoglobulin G 1115 mg/dL (586-1602); Immunoglobulin M 65 mg/dL (26-217); PROEL- TOTAL PROTEIN 6.7 g/dL (6.0-8.5); Perinuclear Ab (P-ANCA) <1:20 titer (Neg:<1:20); QNTFERON TB Mitogen Value > 10.00 IU/mL (.); QNTFERON TB Nil Value 0.03 IU/mL (.); QNTFERON TB1+ Ag Value 0.04 IU/mL (.); QNTFERON TB2+ Ag Value 0.03 IU/mL (.); QNTIFERON TB Positive Criteria Negative (Negative)
== END | disposition home or self-care (01) ==
LOC: LAB 09:10
PROVIDERS: PCP Physician Assistant; Referring Provider Nurse Practitioner Adult Health; Visit Provider Nurse Practitioner Adult Health
DX: K90.0 Celiac disease (principal); R19.7 Diarrhea, unspecified; R14.0 Abdominal distension (gaseous); K52.832 Lymphocytic colitis
CPT/HCPCS: 36415; 80053; 82784; 82785; 83516; 83615; 84165; 85025; 85652; 86140; 86225; 86235; 86255; 86256; 86334; 86480

== ENCOUNTER → 2022-08-28 | Outpatient (CLI) | payer MEDICAID, SELFPAY ==
[2022-09-04 00:06] LABS: Calprotectin, Stool 126 ug/g (0-120)
== END | disposition home or self-care (01) ==
PROVIDERS: PCP Physician Assistant; Referring Provider Nurse Practitioner Adult Health; Visit Provider Nurse Practitioner Adult Health
DX: K90.0 Celiac disease (principal); R19.7 Diarrhea, unspecified
CPT/HCPCS: 83630; 83993

== ENCOUNTER 2022-09-03 05:14 | Day surgery (SDC) | payer MEDICAID, SELFPAY ==
[2022-09-03] VITALS (7 sets, daily range): BP systolic 112–130; BP diastolic 66–97; PULSE 56–77; RESP 16–18; TEMP 36.3–36.6; O2SAT 99–100; BMI 43.9
[2022-09-03] MEDS: Lactated Ringers 1,000 ML 15 ML IV (06:05)
--- NOTE | 2022-09-03 06:18 | SUR.PREOP ---
patient refused urine test. had an ablation in 2010 and no period for 12 years.
--- NOTE | 2022-09-03 06:30 | IMM_PTH ---
PATIENT: SOILA VICKERS LOC: EN U#:[id number] AGE/SX: 36/F ROOM: RE09/03/[address]: Dr. Kb Boudreaux DO : 1985 BED: DIS: 09/03/2022 SPEC #: [id number] RECD: 09/03/22 13:06 STATUS: GARRETT MIRI #: [id number] SEKOU: 09/03/22 06:[address]: Kb Boudreaux DEPT: IMMUNOHISTOCHEMISTRY RECD BY: Maty Quintana ENTERED: 09/03/22 13:06 SP TYPE: IMMUNO OTHR DR: ARON Gonzales Tissues: B - Stomach, NOS C - Esophagus, NOS Procedures: H Pylori (initial) P53 (initial) KI-67 (add) PHYSICIAN & INSTITUTION [place] [id number] SPECIMEN INFORMATION: Tissue Source: B ? Gastric body, C ? Distal esophagus Clinical Info: Celiac disease, diarrhea, LLQ abdominal pain, lymphocytic colitis Specimen Number: [id number] B & C CPT code: 85210 x2, 83169 METHODOLOGY: Deparaffinized sections of prefer/formalin-fixed tissue or PAP/DQ stained slides are incubated with monoclonal/polyclonal antibodies/oligonucleotide probes. Localization is made via biotin free immunoperoxidase method. Appropriate controls are performed and reacted as expected. Results on target cell population are indicated in the following table: RESULTS: ANTIBODY / CLONE RESULT Block B H Pylori (polyclonal) negative Block C P53 (DO-7) negative, null pattern Ki-67 (30-9) positive, low These tests were developed and their performance characteristics determined by [facility]. They may not have been cleared or approved by the U.S. Food and Drug Administration. The FDA has determined that such clearance or approval is not necessary. The above immunohistochemical/dualISH markers are ordered and reviewed by the Pathologist. INTERPRETATION: B. Gastric body, biopsy: Negative for Helicobacter pylori organisms. C. Distal esophagus, biopsy: No evidence of dysplasia. AM:jailene 09/05/2022
--- NOTE | 2022-09-03 06:30 | COLBX_PTH ---
PATIENT: SOILA VICKERS LOC: EN U#:[id number] AGE/SX: 36/F ROOM: RE09/03/[address]: Dr. Kb Boudreaux DO : 1985 BED: DIS: 09/03/2022 SPEC #: [id number] RECD: 09/03/22 10:51 STATUS: GARRETT MIRI #: [id number] SEKOU: 09/03/22 06:[address]: Kb Boudreaux DEPT: SURGICAL PATHOLOGY RECD BY: Shelby Jaeger ENTERED: 09/03/22 11:33 SP TYPE: COLON BX OTHR DR: ARON Gonzales Tissues: A - Duodenum, NOS B - COLON BIOPSY C - Esophagus, NOS D - Ileum, NOS E - COLON BIOPSY Procedures: Trichrome (control) Special Stain Group II Surgery Specimen Level IV Alcian Blue/PAS (control) HEADER OPERATION: Colonoscopy, E[place] [place] biopsy PRE-OP DIAGNOSIS: Celiac disease, diarrhea, LLQ abdominal pain, lymphocytic colitis TISSUE SUBMITTED: A ? Duodenum biopsy, B ? Gastric body biopsy, C ? Distal esophagus biopsy, D ? Terminal ileum biopsy, E ? Random colon biopsy MICROSCOPIC DIAGNOSIS A. Duodenum, biopsy: No pathologic change. B. Gastric body, biopsy: Chronic gastritis. See comment. C. Distal esophagus, biopsy: Gastroesophageal junctional mucosa with chronic inflammation. 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 No evidence of dysplasia. Focal changes of reflux. See comment. D. Terminal ileum, biopsy: No pathologic change. E. Colon, random biopsy: Lymphocytic colitis. See comment. AM:jailene 09/04/2022 COMMENT B. The results of immunohistochemistry for Helicobacter pylori will be reported separately ([id number]). C. Immunohistochemistry ([id number]) for P53 and Ki-67 will be performed and results will be reported separately. Alcian blue/PAS stain with matched control supports the above diagnosis. Trichrome stain with matched control was used in the evaluation of this case. MICROSCOPIC DESCRIPTION Slides are reviewed. GROSS DESCRIPTION A - Received in fixative is one container labeled with the patient's name and designated biopsy duodenum. The specimen consists of multiple irregular fragments of light chin soft tissue that in aggregate measure 1.0 x 0.5 x 0.1 cm. The specimen is totally submitted in one cassette. B - Received in fixative is one container labeled with the patient's name and designated biopsy gastric body. The specimen consists of two irregular fragments of light chin soft tissue that in aggregate measure 1.0 x 0.2 x 0.1 cm. The specimen is totally submitted in one cassette. C - Received in fixative is one container labeled with the patient's name and designated biopsy distal esophagus. The specimen consists of two irregular fragments of light chin soft tissue that in aggregate measure 0.6 x 0.3 x 0.1 cm. The specimen is totally submitted in one cassette. D - Received in fixative is one container labeled with the patient's name and designated biopsy terminal ileum. The specimen consists of multiple irregular fragments of light chin soft tissue that in aggregate measure 1.5 x 0.3 x 0.1 cm. The specimen is totally submitted in one cassette. E - Received in fixative is one container labeled with the patient's name and designated random colon biopsy. The specimen consists of multiple irregular fragments of light chin soft tissue that in aggregate measure 1.5 x 1.0 x 0.1 cm. The specimen is totally submitted in one cassette. / SJ:jailene 09/03/2022 TC:3 CPT: 83482 x5, 14803 x2
--- NOTE | 2022-09-03 06:33 | PCM.HP.BLA ---
History and Physical Date of Admission: 09/03/22 36 F who presents to the office today for chronic diarrhea in the setting of celiac disease and lymphocytic colitis. Bowels are out of control. [place] good for 3 mos but then back to having urgent diarrhea, having 25 bouts of diarrhea per day, watery. Has accidents. Food is going straight through her. She has diarrhea at least 2x in the night every night. Constant pain in LLQ, this began 2 wks ago. She is totally gluten-free. Colestipol was helpful but she ran out. Takes Zenpep--if she doesn't take PERT then she has extreme bloating and abdomen feels hard. Has 4 teenagers. Stressed about weight gain. Recent hives, etiology unknown. Lab pattern not suggestive of IBD Low fecal elastase High fecal calprotectin, high fecal lactoferrin Negative enteric pathogens, neg C diff, neg O&P She didn't tolerate budesonide for lymphocytic colitis Nunu established with this clinic 06.27.21 with referral from her PCP for evaluation of celiac disease and concomitant lymphocytic colitis previously diagnosed in 2018. Referred to rheumatology in for positive YUSEF, additional diagnosis of fibromyalgia and Zahra?s. Rheumatology unable to r/o YUSEF spectrum disorder, but did report celiac disease and zahra?s can cause positive YUSEF. EGD and colonoscopy performed [address] Brandin Judge. EGD ? visual inspection normal. Duodenal mucosa with subtotal villous blunting and patchy increase in epithelial lymphocytes consistent with celiac disease; gastric antrum found active gastritis; negative for H. Pylori. Colonoscopy ? lymphocytic colitis consistent with celiac disease vs rheumatoid arthritis. 12/26/21 CT/Abdomen/Pelvis WITH Contrast IMPRESSION: Nonspecific nonobstructed bowel gas pattern. No appendicitis. No visualized hydronephrosis. Contracted gallbladder. Minor degenerative changes within the thoracolumbar spine . Small right ovarian follicle. Status post tubal ligation. ROS Const Constitutional: Positive for fatigue, headache(s) and weight change ENT ENT: Positive for headache(s) and difficulty swallowing Cardio Cardiology: Positive for leg pain with exertion Gastro GI: Positive for bloating, change in bowel habits, constipation, diarrhea, difficulty swallowing, excessive flatus, nausea/dyspepsia and vomiting; No abdominal pain, belching, change in stool character, coffee ground emesis, cramping, heartburn, feeling full early, incontinent of stools, Vomiting blood/hematemesis, Blood in stool, loose stools, Black,tarry stools, pain with swallowing or other Musc Musculoskeletal: Positive for joint pain, back pain, muscle cramps, muscle weakness, stiffness and leg pain with exertion; No decreased muscle mass Skin Skin: No yellowing of the eye or itchy eyes Neuro Neurology: Positive for headache(s) and Increased tone in limbs Psych Psychiatric: Positive for anxiety and No depression Endo Endocrine: Positive for fatigue and weight change Aller/Imm Allergy/Immunologic: No itchy eyes Amado/Lymp Hematologic/Lymphatic: No easy bleeding or easy bruising Exam Const General: cooperative and in distress (tearful when discussion her symptoms) Eyes Sclera: sclerae normal Resp Effort & Inspection: normal respiratory effort GI Inspection: obesity Palpation: soft, no masses and tender in the LLQ Neuro Gait: normal gait Quality Reporting Tobacco Screening ([facility] 138) Smoking Status: Former smoker Assessment and Plan Assessment and Plan (1) Celiac disease: ?Status:?Chronic ?Plan: 36 yr old female with celiac disease (she is totally gluten-free), hx lymphocytic colitis, chronic diarrhea, acute LLQ abd pain. May have refractory lymphocytic colitis due to celiac disease, may need antiTNF. Get blood tests today and stool tests for inflammation. CT abd pel w/ oral and IV contrast for LLQ abd pain, diarrhea. Refill colestipol and lomotil. Will contact her with results and plan. Schedule EGD and colonoscopy, with office f/u 2 wks later. (2) Diarrhea: ?Status:?Chronic ?Plan: see above (3) LLQ abdominal pain: ?Status:?Acute ?Plan: see above (4) Lymphocytic colitis: ?Status:?Chronic ?Plan: see above ? ? ? Orders: Orders Colonoscopy Today K52.832 - Lymphocytic colitis, K90.0 - Celiac disease ? Comprehensive Metabolic Profil Today K90.0 - Celiac disease, R19.7 - Diarrhea, unspecified ? CRP Today K90.0 - Celiac disease, R19.7 - Diarrhea, unspecified ? LDH Today K90.0 - Celiac disease, R19.7 - Diarrhea, unspecified ? CBC W/Diff, Automated Today K90.0 - Celiac disease, R19.7 - Diarrhea, unspecified ? Erythrocyte Sed Rate Today K90.0 - Celiac disease, R19.7 - Diarrhea, unspecified ? YUSEF Comprehensive Panel Today K90.0 - Celiac disease, R19.7 - Diarrhea, unspecified ? Calprotectin, Stool Today K90.0 - Celiac disease, R19.7 - Diarrhea, unspecified ? Stool Lactoferrin/WBC Today K90.0 - Celiac disease, R19.7 - Diarrhea, unspecified ? ANCA Today K90.0 - Celiac disease, R19.7 - Diarrhea, unspecified ? Celiac Disease Profile Today K90.0 - Celiac disease, R19.7 - Diarrhea, unspecified ? Immunoglobulins G/A/M/E Today K90.0 - Celiac disease, R19.7 - Diarrhea, unspecified ? JUSTIN + Protein Elect, Serum Today K90.0 - Celiac disease, R19.7 - Diarrhea, unspecified ? Abdomen/Pelvis WITH Contrast Today K90.0 - Celiac disease, R10.32 - Left lower quadrant pain, R19.7 - Diarrhea, unspecified ? Quantiferon TB-Gold+ Today K52.832 - Lymphocytic colitis, K90.0 - Celiac disease, R19.7 - Diarrhea, unspecified ? EGD 09/03/22 K52.832 - Lymphocytic colitis, K90.0 - Celiac disease ? Medications: Refilled colestipol 1 g? PO BID 180 tabs 1RF diarrhea ? ? diphenoxylate-atropine 2.5-0.025 mg (Lomotil) 1 TAB? PO BID PRN 60 tabs 0RF diarrhea ? ? Discontinued plecanatide (Trulance) ?? Discontinued Reason:? Pt no longer taking 3 mg? PO DAILY 30 tabs 5RF ? ? lactulose ?? Discontinued Reason:? Order Changed (30 mL) 20 grams orally 1-2x per day 3,000 mL 0RF ? ? I have examined the patient and the H&P has been reviewed. There are no clinical changes since date of exam.
--- NOTE | 2022-09-03 07:12 | OP.EGD_ITS ---
Patient Name: Nunu Collazo Procedure Date: 09/03/2022 6:25 AM Date of : 1985 Age: 36 Procedure: Upper GI endoscopy Indications: Epigastric abdominal pain, Failure to respond to medical treatment Providers: Kb Boudreaux DO Referring MD: Kb Boudreaux DO Medicines: Monitored Anesthesia Care Patient Profile: This is a 36 year old female. Refer to note in patient chart for documentation of history and physical. Patient has symptoms of chronic abdominal cramping, chronic abdominal distention and chronic global abdominal pain. Complications: No immediate complications. Procedure: Pre-Anesthesia Assessment: - Prior to the procedure, a History and Physical was performed, and patient medications and allergies were reviewed. The patient is competent. The risks and benefits of the procedure and the sedation options and risks were discussed with the patient. All questions were answered and informed consent was obtained. Patient identification and proposed procedure were verified by the physician. Mental Status Examination: normal. Prophylactic Antibiotics: The patient does not require prophylactic antibiotics. Prior Anticoagulants: The patient has taken no previous anticoagulant or antiplatelet agents. After reviewing the risks and benefits, the patient was deemed in satisfactory condition to undergo the procedure. The anesthesia plan was to use monitored anesthesia care (MAC). Immediately prior to administration of medications, the patient was re-assessed for adequacy to receive sedatives. The heart rate, respiratory rate, oxygen saturations, blood pressure, adequacy of pulmonary ventilation, and response to care were monitored throughout the procedure. The physical status of the patient was re-assessed after the procedure. After obtaining informed consent, the endoscope was passed under direct vision. Throughout the procedure, the patient's blood pressure, pulse, and oxygen saturations were monitored continuously. The colonoscope was introduced through the mouth, and advanced to the second part of duodenum. The upper GI endoscopy was accomplished without difficulty. The patient tolerated the procedure well. Scope In: 6:41:16 AM Scope Out: 6:46:29 AM Total Procedure Duration Time 0 hours 5 minutes 13 seconds Findings: LA Grade A (one or more mucosal breaks less than 5 mm, not extending between tops of 2 mucosal folds) esophagitis with no bleeding was found 39 to 40 cm from the incisors. Biopsies were taken with a cold forceps for histology. Verification of patient identification for the specimen was done. Estimated blood loss was minimal. Patchy mildly erythematous mucosa without bleeding was found in the gastric body. Biopsies were taken with a cold forceps for histology. Verification of patient identification for the specimen was done. Estimated blood loss was minimal. Scalloped mucosa was found in the duodenal bulb. Biopsies were taken with a cold forceps for histology. Verification of patient identification for the specimen was done by the physician. Estimated blood loss was minimal. Impression: - LA Grade A reflux esophagitis. Biopsied. - Erythematous mucosa in the gastric body. Biopsied. - Duodenal mucosal changes seen, consistent with celiac disease. Biopsied. Recommendation: - Discharge patient to home. - Resume previous diet. - Continue present medications. - Await pathology results. Procedure Code(s): --- Professional --- 33425, Esophagogastroduodenoscopy, flexible, transoral; with biopsy, single or multiple CPT copyright 2017 [employer]. All rights reserved. The codes documented in this report are preliminary and upon regasification plant operator review may be revised to meet current compliance requirements. Kb Boudreaux DO 09/03/2022 7:11:01 AM This report has been signed electronically. Number of Addenda: 0 Note Initiated On: 09/03/2022 6:25 AM
--- NOTE | 2022-09-03 07:12 | OP.CCLET_ITS ---
09/03/2022 Sarah Patel Re : Upper GI endoscopy procedure for Nunu Collazo Dear Jorge This procedure was performed on Saturday, September 03, 2022. My impressions and recommendations are as follows: Impressions : - LA Grade A reflux esophagitis. Biopsied. - Erythematous mucosa in the gastric body. Biopsied. - Duodenal mucosal changes seen, consistent with celiac disease. Biopsied. Recommendations : - Discharge patient to home. - Resume previous diet. - Continue present medications. - Await pathology results. My findings are described in the full procedure note, which is enclosed. If I can be of further assistance, please feel free to contact me at . Sincerely, Kb Boudreaux, 09/03/2022 7:11:01 AM This report has been signed electronically.
--- NOTE | 2022-09-03 07:14 | OP.CCLET_ITS ---
09/03/2022 Sarah Patel Re : Colonoscopy procedure for Nunu Collazo Dear Jorge This procedure was performed on Saturday, September 03, 2022. My impressions and recommendations are as follows: Impressions : - Preparation of the colon was fair. - Decreased sphincter tone found on digital rectal exam. - Congested mucosa in the recto-sigmoid colon, in the sigmoid colon, in the descending colon and in the ascending colon. Biopsied. - The examined portion of the ileum was normal. Biopsied. Recommendations : - Discharge patient to home. - Resume previous diet. - Continue present medications. - Await pathology results. - Repeat colonoscopy in 5 years for surveillance. My findings are described in the full procedure note, which is enclosed. If I can be of further assistance, please feel free to contact me at . Sincerely, Kb Boudreaux, 09/03/2022 7:13:58 AM This report has been signed electronically.
--- NOTE | 2022-09-03 07:14 | OP.COLON_ITS ---
Patient Name: Nunu Collazo Procedure Date: 09/03/2022 6:46 AM Date of : 1985 Age: 36 Procedure: Colonoscopy Indications: Clinically significant diarrhea of unexplained origin Providers: Kb Boudreaux DO Referring MD: Kb Boudreaux DO Medicines: Monitored Anesthesia Care Patient Profile: This is a 36 year old female. Refer to note in patient chart for documentation of history and physical. Patient has symptoms of chronic abdominal cramping, chronic abdominal distention and chronic global abdominal pain. Last Colonoscopy: date unknown. Unable to locate last colonoscopy report. Complications: No immediate complications. Procedure: Pre-Anesthesia Assessment: - Prior to the procedure, a History and Physical was performed, and patient medications and allergies were reviewed. The patient is competent. The risks and benefits of the procedure and the sedation options and risks were discussed with the patient. All questions were answered and informed consent was obtained. Patient identification and proposed procedure were verified by the physician. Mental Status Examination: normal. Prophylactic Antibiotics: The patient does not require prophylactic antibiotics. Prior Anticoagulants: The patient has taken no previous anticoagulant or antiplatelet agents. After reviewing the risks and benefits, the patient was deemed in satisfactory condition to undergo the procedure. The anesthesia plan was to use monitored anesthesia care (MAC). Immediately prior to administration of medications, the patient was re-assessed for adequacy to receive sedatives. The heart rate, respiratory rate, oxygen saturations, blood pressure, adequacy of pulmonary ventilation, and response to care were monitored throughout the procedure. The physical status of the patient was re-assessed after the procedure. After I obtained informed consent, the scope was passed under direct vision. Throughout the procedure, the patient's blood pressure, pulse, and oxygen saturations were monitored continuously. The colonoscope was introduced through the anus and advanced to the terminal ileum. The colonoscopy was performed without difficulty. The patient tolerated the procedure well. The quality of the bowel preparation was fair. Scope In: 6:47:58 AM Scope Withdrawal Time 0 hours 10 minutes 10 seconds Scope Out: 7:02:46 AM Total Procedure Duration Time 0 hours 14 minutes 48 seconds Findings: The digital rectal exam findings include decreased sphincter tone. An area of mildly congested mucosa was found in the recto-sigmoid colon, in the sigmoid colon, in the descending colon and in the ascending colon. Biopsies were taken with a cold forceps for histology. Verification of patient identification for the specimen was done. Estimated blood loss was minimal. The terminal ileum appeared normal. Biopsies were taken with a cold forceps for histology. Verification of patient identification for the specimen was done. Estimated blood loss was minimal. Impression: - Preparation of the colon was fair. - Decreased sphincter tone found on digital rectal exam. - Congested mucosa in the recto-sigmoid colon, in the sigmoid colon, in the descending colon and in the ascending colon. Biopsied. - The examined portion of the ileum was normal. Biopsied. Recommendation: - Discharge patient to home. - Resume previous diet. - Continue present medications. - Await pathology results. - Repeat colonoscopy in 5 years for surveillance. Procedure Code(s): --- Professional --- 06730, Colonoscopy, flexible; with biopsy, single or multiple CPT copyright 2017 [employer]. All rights reserved. The codes documented in this report are preliminary and upon construction manager review may be revised to meet current compliance requirements. Kb Boudreaux DO 09/03/2022 7:13:58 AM This report has been signed electronically. Number of Addenda: 0 Note Initiated On: 09/03/2022 6:46 AM
== END 2022-09-03 07:43 | disposition home or self-care (01) ==
LOC: EN 05:14 → AC 05:15
PROVIDERS: PCP Physician Assistant; Referring Provider Physician Assistant; Visit Provider Internal Medicine Gastroenterology
PROC: 0DJD8ZZ Inspection of Lower Intestinal Tract, Via Natural or Artificial Opening Endoscopic (ICD-10-PCS; CPT 45378; principal; 2022-09-03 06:25)
DX: R19.7 Diarrhea, unspecified (principal); K21.00 Gastro-esophageal reflux disease with esophagitis, without bleeding; Z87.891 Personal history of nicotine dependence; R10.32 Left lower quadrant pain; K90.0 Celiac disease; K52.832 Lymphocytic colitis
CPT/HCPCS: 43239; 45380; 88305; 88313; 88341; 88342; J7120; J2405

== ENCOUNTER → 2022-09-11 | Outpatient (CLI) | payer MEDICAID, SELFPAY ==
[2022-09-11 17:25] LABS: Hepatitis B Surface Antibody Non-Reactive; Rubella IgG Reactive (Nonreactive)
[2022-09-13 05:07] LABS: HEPATITIS B SURFACE AG Negative (Negative); Hep C Antibodies Non Reactive (Non Reactive); Hepatitis A IgM Antibody Negative (Negative); Hepatitis B Core AB IgM Negative (Negative); Rubeola IgG Ab > 300.0 AU/mL (Immune >16.4); V-Zoster IgG (Immunity) 2061 index (Immune >165)
== END | disposition home or self-care (01) ==
LOC: LAB 15:48
PROVIDERS: PCP Physician Assistant; Referring Provider Nurse Practitioner Adult Health; Visit Provider Nurse Practitioner Adult Health
DX: Z01.84 Encounter for antibody response examination (principal); K52.832 Lymphocytic colitis
CPT/HCPCS: 36415; 80074; 86706; 86735; 86762; 86765; 86787

== ENCOUNTER → 2022-09-15 | Outpatient (CLI) | payer MEDICAID, SELFPAY ==
--- NOTE | 2022-09-15 15:47 | CT_ITS ---
EXAM: CT Abdomen And Pelvis W/ Contrast Injection HISTORY: LLQ pain, diarrhea, celiac -- oral and IV DIARRHEA X 4 DAYS, [id number] X 4, CELIAC DZ TECHNIQUE: Routine protocol CT abdomen pelvis. IV Contrast: IV 100mL Isovue-300 . Oral Contrast: With. Sagittal and coronal images were reconstructed. RADIATION DOSAGE (If Supplied By Facility): CTDIvol = ( 18.64 ) mGy, DLP = ( 1217.05 ) mGycm Individualized dose optimization techniques were used for this CT. COMPARISON: CT abdomen and pelvis 12/26/2021. LIMITATIONS: None. FINDINGS: LOWER CHEST: Unremarkable. LIVER: Unremarkable. GALLBLADDER/BILE DUCTS: Unremarkable. PANCREAS: Unremarkable. SPLEEN: Unremarkable. ADRENAL GLANDS: Unremarkable. KIDNEYS / URETERS: Unremarkable. BOWEL / MESENTERY: Unremarkable. No bowel obstruction. APPENDIX: Identified and normal. No evidence of acute appendicitis. PERITONEUM: No free air. Small amount of free fluid in the pelvis. VESSELS: Abdominal aorta is normal caliber. RETROPERITONEUM: Unremarkable. REPRODUCTIVE ORGANS: Unremarkable. Surgical clips mainly in the adnexal regions. BLADDER: Unremarkable. ABDOMINAL WALL: Unremarkable. BONES: No acute abnormality. OTHER: None. CT/Abdomen/Pelvis WITH Contrast IMPRESSION: No acute findings. Electronically Signed: Carol Pak MD at 4:02 EDT ,
== END | disposition home or self-care (01) ==
LOC: CT 15:46
PROVIDERS: PCP Physician Assistant; Referring Provider Nurse Practitioner Adult Health; Visit Provider Nurse Practitioner Adult Health
DX: R10.32 Left lower quadrant pain (principal); R19.7 Diarrhea, unspecified; K90.0 Celiac disease
CPT/HCPCS: 74177; Q9967

== ENCOUNTER → 2022-10-22 | Outpatient (CLI) | payer MEDICAID, SELFPAY ==
[2022-10-22 18:02] LABS: Vitamin B12 363 pg/mL (211-911)
[2022-10-22 18:20] LABS: Uric Acid 6.3 mg/dL (2.6-6.0)
== END | disposition home or self-care (01) ==
PROVIDERS: PCP Physician Assistant; Referring Provider Internal Medicine Gastroenterology; Visit Provider Internal Medicine Gastroenterology
DX: K86.81 Exocrine pancreatic insufficiency (principal); K52.832 Lymphocytic colitis
CPT/HCPCS: 36415; 82607; 82746; 84550

== ENCOUNTER → 2022-11-01 | Outpatient (CLI) | payer MEDICAID, SELFPAY ==
[2022-11-05 17:08] LABS: Calprotectin, Stool 609 ug/g (0-120)
[2022-11-13 22:07] LABS: H. PYLORI STOOL AG Negative (Negative); Pancreatic Elastase, Fecal 103 (>200)
== END | disposition home or self-care (01) ==
LOC: LAB 10:19
PROVIDERS: PCP Physician Assistant; Referring Provider Internal Medicine Gastroenterology; Visit Provider Internal Medicine Gastroenterology
DX: K86.81 Exocrine pancreatic insufficiency (principal); K52.832 Lymphocytic colitis
CPT/HCPCS: 82653; 83630; 83993; 87338; 87493

== ENCOUNTER → 2023-03-23 | Outpatient (CLI) | payer MEDICAID, SELFPAY ==
[2023-03-31 00:07] LABS: Calprotectin, Stool 262 ug/g (0-120)
[2023-04-02 13:07] LABS: Pancreatic Elastase, Fecal < 50 (>200)
== END | disposition home or self-care (01) ==
LOC: LAB 14:47
PROVIDERS: PCP Physician Assistant; Referring Provider Internal Medicine Gastroenterology; Visit Provider Internal Medicine Gastroenterology
DX: K58.9 Irritable bowel syndrome, unspecified (principal); K86.81 Exocrine pancreatic insufficiency; K90.0 Celiac disease
CPT/HCPCS: 82653; 83630; 83993

== ENCOUNTER → 2023-04-03 | Outpatient (CLI) | payer MEDICAID, SELFPAY ==
--- NOTE | 2023-04-03 12:45 | NM_ITS ---
CLINICAL: 37-year-old female with history of clinical gastroparesis. SEMI-SOLID PHASE 99m Tc SULFUR COLLOID GASTRIC EMPTYING STUDY COMPARISON: None available FINDINGS: The patient was administered 1.2 mCi of 99m Tc sulfur colloid mixed with oatmeal and consumed per os. Image acquisitions in the anterior-posterior projections were obtained for 60 minutes. There is prompt visualization of the stomach. There is no gastroesophageal reflux identified. The T ? raw data emptying was calculated to be 44.63 minutes, (Normal: 12-56 minutes). NM/Gastric Emptying Study IMPRESSION: 1. NORMAL 99m Tc sulfur colloid semi-solid phase (oatmeal) gastric emptying imaging examination. A. There is normal and preserved semi-solid phase gastric emptying compared to normal controls. (Tabby et al, J Nucl Med Tech 38: 186, 2010). Electronically Signed: Maninder Winchester DO at 10:03 EST ,
== END | disposition home or self-care (01) ==
LOC: NM 12:45
PROVIDERS: PCP Physician Assistant; Referring Provider Internal Medicine Gastroenterology; Visit Provider Internal Medicine Gastroenterology
DX: K86.81 Exocrine pancreatic insufficiency (principal); K52.832 Lymphocytic colitis; R10.9 Unspecified abdominal pain; K90.0 Celiac disease
CPT/HCPCS: 78264; A9541